=== PATIENT | male | born 1935 | race Caucasian/White ===

== ENCOUNTER 2018-11-13 06:53 | Inpatient (IN) ==
[2018-11-07 16:15] LABS: Appearance,Urine CLEAR; Bacteria,Urine FEW /hpf (0); Bilirubin,Urine NEG (NEG); Color,Urine YELLOW; Culture Indicated,Urine YES; Glucose,Urine (UA) NEGATIVE (NEG); Ketones,Urine NEG (NEG); Leukocyte Esterase,Urine 250 /uL (NEG); Mucus,Urine FEW /hpf (0); Nitrate,Urine NEG (NEG); Protein,Urine NEG (NEG); Specific Gravity,Urine 1.021 (1.000-1.035); Urine Blood NEG mg/dL (<0.03); Urine Hyaline Cast 9 /lpf (0-2); Urine RBC 2 /hpf (0-1); Urine Squamous Epithelial Cell < 1 /hpf (0-4); Urine WBC 28 /hpf (0-4); Urobilinogen,Urine NEG (NEG)
[2018-11-07 18:11] LABS: Blood Urea Nitrogen 22 mg/dl (8-23); Calcium 9.9 mg/dl (8.6-10.4); Carbon Dioxide 24 mmol/L (22-30); Chloride 104 mmol/L (96-108); Glomerular Filtration Rate 62; Glucose 98 mg/dL (70-105); Potassium 4.3 mmol/L (3.3-5.1); Sodium 143 mmol/L (133-145)
[2018-11-07 18:31] LABS: Basophils # (Auto) 0 K/mcL (0.0-0.3); Basophils % (Auto) 0.3 % (0.0-2.0); Eosinophils # (Auto) 0.1 K/mcL (0.0-0.7); Granulocytes % (Auto) 59.4 % (38.0-78.0); Hematocrit 42.5 % (41.0-55.0); Hemoglobin 14.3 g/dL (13.5-16.5); Lymphocytes # (Auto) 2.3 K/mcL (1.5-4.8); Lymphocytes % (Auto) 28.3 % (15.5-49.0); Mean Cell Volume 92.9 fL (80.0-100.0); Mean Corpuscular HGB Conc 33.7 g/dL (31.0-36.0); Mean Platelet Volume 11.3 fL (7.4-10.4); Monocytes # (Auto) 0.9 K/mcL (0.1-0.9); Platelet Count 171 K/mcL (140-440); RBC 4.57 M/mcL (4.50-5.90); Red Cell Distribution Width 12.8 % (11.5-14.5); WBC 8.3 K/mcL (4.5-11.0)
[~2018-11-13 06:53] MED LIST: ACETAMINOPHEN 500 MG TABLET PO SCH; CELECOXIB 200 MG CAPSULE PO SCH; IPRATROPIUM/ALBUTEROL 3 ML AMPUL.NEB NEB PRN; PREGABALIN 75 MG CAPSULE PO SCH; SCOPOLAMINE 1 PATCH PATCH TOPICAL PRN; ceFAZolin 2 GM in DEXTROSE 5% IN WATER 50 ML IV SCH; oxyCODONE 10 MG TAB.ER.12H PO SCH
[2018-11-13] MEDS ORDERED: CIPROFLOXACIN 400 MG/200 ML BAG IV ONE (07:23)
[2018-11-13] MEDS ORDERED: ATROPINE SULFATE 0.4 MG/ML VIAL IV ONE (10:05)
[2018-11-13] MEDS ORDERED: DEXAMETHASONE 10 MG/ML VIAL IV ONE (10:05)
[2018-11-13] MEDS ORDERED: ROPIVACAINE HCL/PF 30 ML VIAL IJ ONE (10:05)
[2018-11-13] MEDS ORDERED: PROPOFOL 200 MG/20 ML VIAL IV ONE (10:05)
[2018-11-13] MEDS ORDERED: TRANEXAMIC ACID 1,000 MG/10 ML VIAL IV ONE (10:05)
[2018-11-13] MEDS ORDERED: PHENYLEPHRINE 10 MG/ML VIAL IV ONE (10:05)
[2018-11-13] MEDS ORDERED: METOPROLOL TARTRATE 5 MG/5 ML VIAL IV ONE (10:05)
[2018-11-13] MEDS ORDERED: SUGAMMADEX SODIUM 200 MG/2 ML VIAL IV ONE (10:05)
[2018-11-13] MEDS ORDERED: MIDAZOLAM 5 MG/5 ML VIAL IV ONE (10:05)
[2018-11-13] MEDS ORDERED: KETAMINE 100 MG/ML ML IV ONE (10:05)
[2018-11-13] MEDS ORDERED: fentaNYL 250 MCG/5 ML VIAL IV ONE (10:05)
[2018-11-13] MEDS ORDERED: ROCURONIUM 10 MG/ML ML IV ONE (10:05)
[2018-11-13] MEDS ORDERED: GLYCOPYRROLATE 0.2 MG/ML VIAL IV ONE (10:05)
[2018-11-13] MEDS ORDERED: LIDOCAINE HCL/PF 100 MG/5 ML SYRINGE IV ONE (10:05)
[2018-11-13] MEDS ORDERED: GENTAMICIN SULFATE 800 MG/20 ML VIAL IR ONE (10:39)
[2018-11-13] MEDS ORDERED: BENZOCAINE/MENTHOL 1 LOZENGE PO PRN (11:47)
[2018-11-13] MEDS ORDERED: ACETAMINOPHEN 325 MG TABLET PO PRN (11:47)
[2018-11-13] MEDS ORDERED: HYDROmorphone 2 MG/ML VIAL IV PRN (11:47)
[2018-11-13] MEDS ORDERED: TRANEXAMIC ACID 1,000 MG/10 ML VIAL IV SCH (11:47)
[2018-11-13] MEDS ORDERED: POLYETHYLENE GLYCOL 3350 17 GM PACKET PO PRN (11:47)
[2018-11-13] MEDS ORDERED: MAGNESIUM HYDROXIDE 30 ML ORAL.SUSP PO PRN (11:47)
[2018-11-13] MEDS ORDERED: BISACODYL 10 MG SUPP.RECT PR PRN (11:47)
[2018-11-13] MEDS ORDERED: ONDANSETRON 4 MG/2 ML VIAL IV PRN ×2 (11:47→12:06)
[2018-11-13] MEDS ORDERED: KETOROLAC 15 MG/ML VIAL IV PRN (11:47)
[2018-11-13] MEDS ORDERED: FLEETS ADULT ENEMA PR PRN (11:47)
--- NOTE | 2018-11-13 11:47 | Brief Operative Note ---
Date of procedure: 11/13/18 Pre-op diagnosis: left shoulder rotator cuff arthropathy Post-op diagnosis: same Procedure: left reverse tsa and bicep tenodesis Grafts/Implants: Yes Anesthesia: GETA Complications: none Surgeon: Manuel Tidwell [employer] Information Clerk: Lucien Caldwell Estimated blood loss (cc): 100 Specimens Removed/Pathology: none sent Condition: stable Disposition: PACU
[2018-11-13] MEDS ORDERED: MEPERIDINE 25 MG/ML SYRINGE IV PRN (12:06)
[2018-11-13] MEDS ORDERED: METHOCARBAMOL 1,000 MG/10 ML VIAL IV PRN (12:06)
[2018-11-13] MEDS ORDERED: IPRATROPIUM/ALBUTEROL 3 ML AMPUL.NEB NEB PRN (12:06)
[2018-11-13] MEDS ORDERED: fentaNYL 100 MCG/2 ML VIAL IV PRN (12:06)
[2018-11-13] MEDS ORDERED: LACTATED RINGERS 1,000 ML IV SCH (12:15)
--- NOTE | 2018-11-13 12:22 | XRay Report ---
CLINICAL INFORMATION: Postsurgical follow-up TECHNIQUE: AP and transscapular Y view COMPARISON: Preoperative evaluation dated 10/27/2017 FINDINGS: Status post left reverse shoulder arthroplasty. Alignment is anatomic. IMPRESSION: Status post left reverse shoulder arthroplasty Interpreted and Authenticated by: Jacky Roa 11/13/18
[2018-11-13] MEDS: 0.45 % SODIUM CHLORIDE 1,000 ML IV SCH ×2 (13:04→23:18)
[2018-11-13] MEDS: 0.9 % SODIUM CHLORIDE 10 ML SYRINGE IV SCH ×2 (13:08→21:23)
--- NOTE | 2018-11-13 14:26 | Operative Note ---
DATE OF OPERATION: 11/13/2018 PREOPERATIVE DIAGNOSIS: Left rotator cuff arthropathy. POSTOPERATIVE DIAGNOSIS: Left rotator cuff arthropathy. PROCEDURE: 1. Left reverse total shoulder with a biceps tenodesis. 2. Skin tag removal from the neck. SURGEON: Manuel Tidwell MD [employer]ETING COORDINATOR: Lucien Caldwell PA-C. The PA's assistance was required for the safe and efficient completion of the entire case. This provider's expertise and technical skill were required throughout the case. The PA assisted with preoperative coordination, intraoperative retraction, wound closure, dressing and splint application, as well as postoperative documentation and care coordination. ANESTHESIA: General LMA anesthesia. ESTIMATED BLOOD LOSS: About 100 mL COMPLICATIONS: None. IMPLANTS: Sweetie components for reverse total shoulder with a size 13 stem standard thickness poly, a 40 mm glenosphere metaglene. Screws sizes per nurse's note. Bone quality excellent. DESCRIPTION OF PROCEDURE: The patient was brought to the operating room and put to sleep with general anesthesia. Once asleep, the patient had the left shoulder sterilely prepped and draped in the usual sterile fashion. Timeout was performed. We confirmed this as the operative site. There was a small skin tag on the neck that measured 3 to 4 mm. Approval has been obtained and this was removed at this point. After we made a confirmation of the surgery, we then placed Ioban over the axillary fold and the skin. We made a deltopectoral approach with a curved incision from the coracoid to the deltoid insertion site. We then retracted the deltoid laterally with a Norton retractor and identified the cephalic vein as well as the conjoined tendon which was retracted medially. I released the subscap, dislocated the humeral head which had a large rotator cuff tear, supraspinatus, infraspinatus. A bony cut was made of the humerus at 20 degrees of retroversion. Once this was done, we then placed a protective plate and this was retracted posteriorly. We then removed the labrum around the shoulder, removed the remnants of the biceps tendon and exposed the joint with retractors. We then placed a central drill hole and pin. With this pin the reamer was cannulated and placed over the top to guide this into the center of the glenoid. Once we had 50% bony surface that was bleeding on the inferior portion with 10 degrees of inclination reaming, we then released the remaining of the capsule inferiorly and then placed the metaglene. The metaglene with a central screw measuring 32; superior screw was measured at 28; anterior screw was measured at 36; inferior screw 36 mm. These gave excellent purchase. All were tensioned and then we placed a 40 mm glenosphere with 2 mm of the eccentricity inferiorly and 2 mm of offset. Once tapped into place we then prepared the humerus. This was broached up to the size 13. We trialed the size 13 stem, standard thickness poly-a little tight initially. We then trimmed and sat the stem slightly distal. We then placed our implant. The stem was placed with a small amount of cement distally after thorough irrigation had been obtained. We then implanted this and then placed the standard thickness poly. This was implanted into the stem and tapped into place. Once locked we then reduced the humerus and the glenoid. There was excellent range of motion, stable throughout the arc of motion. We then irrigated thoroughly, repaired the biceps tendon to the pectoralis major with #2 Ethibond stitch x2 figure-of-8 stitches. We then repaired the deltopectoral interval. This was closed with #2 Vicryl and 0 Vicryl. We closed the skin with 2-0 Vicryl and adhesive closure. The patient tolerated this well. A standard DonJoy sling was fitted and given to the patient. EVERETTE:nikolas Job ID: [id number] Doc ID: [id number] Manuel Tidwell MD
[2018-11-13] MEDS: ceFAZolin 1 GM VIAL IV SCH (17:49)
[2018-11-13] MEDS: HYDROcodone/APAP 10/325MG TABLET PO PRN ×2 (17:55→23:17)
[2018-11-13] MEDS ORDERED: SENNOSIDES 1 TABLET PO SCH (21:00)
[2018-11-13] MEDS ORDERED: TEMAZEPAM 15 MG CAPSULE PO PRN (21:00)
[2018-11-13] MEDS: DOCUSATE SODIUM 100 MG CAPSULE PO SCH (21:23)
[2018-11-14] MEDS: ceFAZolin 1 GM VIAL IV SCH (00:14)
[2018-11-14] MEDS: 0.9 % SODIUM CHLORIDE 10 ML SYRINGE IV SCH (05:33)
--- NOTE | 2018-11-14 07:28 | Orthopedic Progress Note ---
Subjective Patient information: Note initiated : 11/14/18 at 7:28 am Service Date, if different from initiated Date: [] Patient: Ancelmo Villar 83 y/o M admitted on 11/13/18 for Left Reverse Total Shoulder Arthroplasty with. Chief Complaint: [Pt is stable this morning on post operative day 1 without any significant concerns or complaints. Patients vital signs have remained stable. Patients dressing is dry and is grossly intact from a neur ovascular and motor standpoint. Patients 10 point ROS is otherwise negative. ] Objective Vital signs: Vital Signs Temp Pulse Resp BP Pulse Ox 11/14/18 03:55 97.5 F 51 L 16 123/62 93 11/13/18 23:52 97.4 F 50 L 22 126/63 93 11/13/18 20:24 97.4 F 59 L 24 H 132/72 93 11/13/18 16:02 98 F 53 L 16 115/61 97 11/13/18 14:55 46 L 106/62 97 11/13/18 13:57 46 L 104/64 93 11/13/18 13:42 48 L 115/65 95 11/13/18 13:27 48 L 110/62 95 11/13/18 13:12 47 L 104/60 93 11/13/18 12:57 51 L 105/60 93 11/13/18 12:45 56 L 12 105/63 96 11/13/18 12:30 52 L 11 L 103/50 95 11/13/18 12:15 54 L 11 L 117/65 95 11/13/18 12:00 56 L 11 L 133/62 100 11/13/18 11:45 97.1 F 66 10 L 127/52 100 Intake and Output 11/13/18 11/14/18 11/14/18 21:59 05:59 13:59 Intake Total 1040 1200 Output Total 600 650 Balance 1040 600 -650 Intake: IV 1000 Sodium Chloride 0.45% 1,000 ml 1000 @ 100 mls/hr IV .Q10H [facility] Rx#: [id number] Oral 1040 200 Output: Urine Catheter Amount 600 650 Other: Meal Late lunch Percent of Meal Consumed 100% Urine Appearance Clear Clear Urine Color Bright Yellow Bright Yellow Weight 240 lb 4.8 oz Intake & Output: Intake & Output 11/13/18 11/14/18 11/14/18 21:59 05:59 13:59 Intake Total 1040 1200 Output Total 600 650 Balance 1040 600 -650 Weight 240 lb 4.8 oz Intake: IV 1000 Sodium Chloride 0.45% 1,000 ml 1000 @ 100 mls/hr IV .Q10H [facility] Rx#: [id number] Oral 1040 200 Output: Urine Catheter Amount 600 650 Other: Meal Late lunch Percent of Meal Consumed 100% Urine Appearance Clear Clear Urine Color Bright Yellow Bright Yellow Incision: Yes healing Dressing: Yes clean Weight bearing status: full Neurological exam IM: Yes neurovascular intact - Labs CBC & BMP: 11/07/18 14:41 11/07/18 14:41 Labs: 11/07/18 14:41 Hgb 14.3 Hct 42.5 Assessment and Plan (1) History of reverse total replacement of left shoulder joint The patient has been educated regarding dressing care, Physical Therapy recommendations, home exercises, restrictions, and follow up appointments. The p atient has had all necessary DME prescribed. The patient has remained relatively stable during their hospital course. The patient has been educated regarding dressing care, Physical Therapy recommendations, home exercises, restrictions, and follow up appointments. The patient has had all necessary DME prescribed. The patient has remained relatively stable during their hospital course. Status: Acute
--- NOTE | 2018-11-14 07:31 | Discharge Summary ---
Ortho Discharge - TSA - Patient Instructions Diet: Regular Diet Activity: activity as tolerated, weight bearing as tolerated Total Shoulder Protocol: Leave immobilizer in place except for bathing and ROM. Abduction pillow. Continue to wear sling until seen by physician. Codman Pendulum : These exercises use momentum produced by your body to move your shoulder joint. Bend your knees and shift your weight to your front leg, then back, allowing your arm to swing in the same directions. Using the same technique, alternately shift your weight between your right and left legs, allowing your arm to swing from side to side. These exercises are also performed in counterclockwise and clockwise circular motions. Typically these exercises are performed several times per day, for a set number repetitions or minutes, such as 20 times in a row or 5 minutes at a time. Dressing Care: May shower in 2 days - Problem Maintenance (1) History of reverse total replacement of left shoulder joint Status: Acute - Follow Up Plan Follow Up Appointments: Lucien Caldwell PA-C [Physician Direct Support Worker] - 11/30/18 11:20 am Disposition: Home, Self-Care Prognosis: Good Rehab Potential: Good I certify that the patient requires SNF services: No Overall status at discharge: patient is progressing back to baseline - Orders For Discharge Prescriptions: Docusate Sodium [Colace] 100 mg PO BID #60 cap HYDROcodone/APAP 10/325MG [[place] 10-325Mg] 1 - 2 tab PO Q4HP PRN #75 tab PRN Reason: Pain Level 3-6
[2018-11-14] MEDS ORDERED: FISH OIL 1,000 MG CAPSULE PO SCH (09:00)
[2018-11-14] MEDS ORDERED: MULTIVIT,THER IRON,CA,FA & MIN 1 TABLET PO SCH (09:00)
[2018-11-14] MEDS ORDERED: MAGNESIUM OXIDE 400 MG TABLET PO SCH (09:00)
[2018-11-14] MEDS ORDERED: ASPIRIN 81 MG TAB.CHEW PO SCH (09:00)
[2018-11-14] MEDS ORDERED: ATORVASTATIN 20 MG TABLET PO SCH (09:00)
[2018-11-14] MEDS ORDERED: LOSARTAN 50 MG TABLET PO SCH (09:00)
[2018-11-14] MEDS: DOCUSATE SODIUM 100 MG CAPSULE PO SCH (09:20)
[2018-11-14] MEDS: 0.45 % SODIUM CHLORIDE 1,000 ML IV SCH (09:20)
== END 2018-11-14 13:57 | disposition home or self-care (01) | DRG 483 ==
LOC: MEDSUR 06:53
PROVIDERS: ADMIT Orthopaedic Surgery; ATTEND Orthopaedic Surgery